=== PATIENT | female | born 1965 | race African-American/Black ===

== ENCOUNTER 2023-06-06 15:22 | Emergency (ER) | payer MEDICAID ==
[~2023-06-06] VITALS: Ht 165.1 cm; Wt 91.0 kg
[2023-06-06 15:36] VITALS: TEMP 98.7; O2SAT 98
[2023-06-06] MEDS ORDERED: LIDOCAINE 5% PATCH TOP STA (15:57)
[2023-06-06] MEDS ORDERED: IBUPROFEN 400MG TABLET PO ONE (16:00)
[2023-06-06] MEDS ORDERED: ACETAMINOPHEN 325MG TABLET PO ONE (16:00)
[2023-06-06] MEDS ORDERED: TOPUD PO (18:12)
[2023-06-06] MEDS ORDERED: LIDO1ADH23 TP (18:12)
[2023-06-06] MEDS ORDERED: IBUP-2028 MT (18:12)
[2023-06-06] MEDS ORDERED: METH-653 MT (18:12)
[2023-06-06 19:03] VITALS: BP 132/82; PULSE 75; RESP 20
== END 2023-06-06 19:03 | disposition home or self-care (01) ==
LOC: ER 15:22
DX: M25.552 Pain in left hip (principal); I10 Essential (primary) hypertension; W18.30XA Fall on same level, unspecified, initial encounter; Y93.89 Activity, other specified; Y92.89 Other specified places as the place of occurrence of the external cause; Y99.8 Other external cause status
CPT/HCPCS: 72100; 73502; 73552; 99284

== ENCOUNTER 2024-09-02 08:40 | Emergency (ER) | payer MEDICAID ==
[~2024-09-02] VITALS: Ht 162.6 cm; Wt 79.0 kg
[~2024-09-02 08:40] MED LIST: IBUP-2028 MT; LIDO1ADH23 TP; METH-653 MT; TOPUD PO
[2024-09-02 08:44] VITALS: TEMP 37; O2SAT 98
[2024-09-02 09:30] VITALS: TEMP 98.6
[2024-09-02] MEDS: ACETAMINOPHEN 325MG TABLET PO ONE (09:30)
[2024-09-02] MEDS: ONDANSETRON HCL 4MG/2ML INJ IV ONE (09:30)
[2024-09-02 09:46] LABS: BASOPHILS % 0.9 % (0.0-2.0); DIFFERENTIAL COMMENT 0; EOSINOPHILS % 7.4 % (0.0-5.0); HEMATOCRIT. 35.4 % (36.0-48.0); HEMOGLOBIN. 10.9 g/dL (12.0-16.0); LYMPHOCYTES % 27.7 % (20.0-50.0); MEAN CORPUSCULAR HEMOGLOBIN 22.8 pg (28.0-32.0); MEAN CORPUSCULAR HGB CONC 30.9 g/dL (31.0-37.0); MEAN CORPUSCULAR VOLUME 73.9 fL (81.0-99.0); MEAN PLATELET VOLUME 7.5 fl (7.4-10.4); MONOCYTES % 6.3 % (2.0-8.0); NEUTROPHILS % 57.7 % (40.0-76.0); PLATELET 288 x1000/uL (130-400); RED BLOOD CELL COUNT 4.78 mill/uL (4.2-5.4); WHITE BLOOD COUNT 4.9 x1000/uL (4.5-11.0)
[2024-09-02 09:54] LABS: CHLORIDE 109 mEq/L (98-107); SODIUM 143 mEq/L (136-145)
[2024-09-02 09:55] LABS: CALCIUM 9.6 mg/dL (8.7-10.4); CARBON DIOXIDE 26 mEq/L (21-32)
[2024-09-02 10:00] LABS: CREATININE 0.8 mg/dL (0.6-1.0); GLUCOSE 89 mg/dL (70-105); TROPONIN I HIGH SENSITIVITY 5 ng/L (3.0-34); UREA NITROGEN BLOOD 11 mg/dL (9-23)
[2024-09-02 10:02] LABS: ALANINE AMINOTRANSFERASE 12 IU/L (10-49); ALBUMIN 4.2 g/dL (3.2-4.8); ASPARTATE AMINOTRANSFERASE 18 IU/L (<34); BILIRUBIN TOTAL 0.2 mg/dL (0.1-1.0); PROTEIN TOTAL 7.4 g/dL (6.0-8.3)
[2024-09-02 10:15] LABS: BILIRUBIN DIRECT < 0.1 mg/dL (<=3.0)
[2024-09-02 10:45] VITALS: BP 154/88; PULSE 80; RESP 18; O2SAT 100
== END 2024-09-02 10:55 | disposition left against medical advice (07) ==
LOC: ER 08:40 → CANBEDREQ 10:49 → ER 10:55
DX: S06.9X9A Unspecified intracranial injury with loss of consciousness of unspecified duration, initial encounter (principal); S39.92XA Unspecified injury of lower back, initial encounter; R11.0 Nausea; I10 Essential (primary) hypertension; F32.A Depression, unspecified; Z79.899 Other long term (current) drug therapy; V89.2XXA Person injured in unspecified motor-vehicle accident, traffic, initial encounter; Y93.89 Activity, other specified; Y92.89 Other specified places as the place of occurrence of the external cause; Y99.8 Other external cause status
CPT/HCPCS: 99291; 70450; 96374; 80076; 80048; 83690; 85025; 84484; 36415; 71045; 72125; 72131; 72192; 93005; J2405